=== PATIENT | male | born 1985 | race Caucasian/White ===

== ENCOUNTER 2019-01-26 13:46 | Outpatient (CLI) | payer OTHER, SELFPAY ==
--- NOTE | 2019-01-26 14:28 | DI.RAD_ITS ---
SYMPTOMS/DIAGNOSIS: FREQUENT FALLS, R29.6, SUSPECTED FX METACARPALS S/P FALL ON 01/25/19 LEFT HAND: There is a deformity of the radial aspect of the 2nd metacarpal head, which could represent an acute fracture. There is an adjacent sesamoid, somewhat obscuring visualization of this portion of the 2nd metacarpal head. No additional fractures are identified. IMPRESSION: Nondisplaced fracture at the radial aspect of the head of the 2nd metacarpal.
== END 2019-01-26 14:06 ==
PROVIDERS: Visit Provider Family Medicine
DX: S62.341A Nondisplaced fracture of base of second metacarpal bone, left hand, initial encounter for closed fracture (principal); R29.6 Repeated falls
CPT/HCPCS: 73130

== ENCOUNTER 2019-04-25 09:37 | Outpatient (REF) | payer OTHER, SELFPAY ==
[2019-04-25 21:23] LABS: Anion Gap 8.1 mmol/L (3-11); BUN 19 mg/dL (7-18); CO2 28.9 mmol/L (21.0-32.0); CREATININE 0.94 mg/dL (0.70-1.30); Calcium 9.6 mg/dL (8.5-10.1); Calculated LDL 114 mg/dL; Chloride 102 mmol/L (98-107); Cholesterol 198 mg/dL (50-200); Glucose 95 mg/dL (70-100); HDL Cholesterol 70 mg/dL (40-60); Potassium 4.8 mmol/L (3.5-5.1); Sodium 139 mmol/L (136-145); TSH (W/Ref FT4) 0.88 uIU/mL (0.36-3.74); Triglyceride 73 mg/dL (30-150)
[2019-04-25 21:30] LABS: Abs Immature Grans 0.02 k/cumm (0.0-0.09); Absolute Basophil Count 0.05 k/cumm (0.0-0.2); Absolute Eosinophil Count 0.11 k/cumm (0.0-0.7); Absolute Lymphocyte Count 1.85 k/cumm (1.2-3.4); Absolute Monocyte Count 0.55 k/cumm (0.11-0.7); Absolute Neutrophil Count 3.56 k/cumm (1.2-6.7); Basophils % 0.8; Eosinophils % 1.8; Immature Grans % 0.3; Lymphocytes % 30.1; Mean Corp. HGB Concentration 34.8 g/dL (32.0-36.0); Mean Corpuscular Hemoglobin 30.8 pg (27.0-33.0); Mean Corpuscular Volume 88.6 fL (80-95); Mean Platelet Volume 10.5 fL (8.0-11.0); Platelet Count 233 x1000/uL (130-400); RBC 5.19 m/cumm (4.50-6.00); RBC Distribution Width 12.4 % (11.8-14.1); White Blood Cell Count 6.14 k/cumm (4.4-10.8)
== END 2019-04-25 09:57 ==
LOC: NCHCN 09:37
PROVIDERS: PCP Family Medicine; Visit Provider Family Medicine
DX: Z00.00 Encounter for general adult medical examination without abnormal findings (principal); F19.10 Other psychoactive substance abuse, uncomplicated; R19.7 Diarrhea, unspecified; Z13.220 Encounter for screening for lipoid disorders; L40.9 Psoriasis, unspecified; Z80.8 Family history of malignant neoplasm of other organs or systems
CPT/HCPCS: 80048; 80061; 84443; 85025